=== PATIENT | female | born 1930 | race Caucasian/White ===

== ENCOUNTER 2017-10-17 11:19 | Day surgery (SDC) | payer OTHER ==
[2017-10-12 12:12] LABS: Absolute Monocytes 0.8 K/uL (0.1-1.3); Absolute Neutrophil 5.6 K/uL (1.8-8.0); Basophils % 0.7 % (0-1.3); Eosinophils % 1.9 % (0-4.4); Hematocrit 36.6 % (36.0-45.0); Lymphocytes % 31.3 % (15.3-44.8); MCH 31.2 pg (27.0-35.0); MCV 91.1 fL (80-100); MPV 9.2 fL (7.6-11.3); Monocytes % 8.2 % (3.3-12.3); RBC Red Blood Cell Count 4.02 M/uL (3.86-4.86)
[2017-10-12 12:30] LABS: Potassium 3.7 mmol/L (3.5-5.1)
--- NOTE | 2017-10-12 17:52 | EKG ---
Test Date: 2017-10-12 Test Time: 11:50:16 Aws Developer: ROSIE MEASUREMENT RESULTS: Intervals: Rate: 63 DE: 144 QRSD: 90 QT: 454 QTc: 464 [place]: P: 73 DE: 144 QRS: 34 T: 65 INTERPRETIVE STATEMENTS: Sinus rhythm with frequent premature ventricular complexes Otherwise normal ECG Compared to ECG 01/15/2014 06:37:14 Ventricular premature complex(es) now present Sinus bradycardia no longer present Electronically Signed On 10-12-17 17:50:40 CDT by Willem Dempsey
[2017-10-17] MEDS ORDERED: NA CHLORIDE 0.9% 500 ML ONE (12:08)
[2017-10-17] MEDS ORDERED: DUOVISC 1 KIT OPTH ONE (12:12)
[2017-10-17] MEDS ORDERED: BALANCED SALT IRRIG PLAIN 500 ML BTL IRR ONE (12:12)
[2017-10-17] MEDS ORDERED: NS 0.9% VIAL 10 ML ONE (12:12)
[2017-10-17] MEDS ORDERED: MOXIFLOXACIN HCL 10 DROPS/ML **OR USE OPTH ONE (12:13)
[2017-10-17] MEDS: CYCLOPENTOLATE 1% OPTH 2 ML ONE ×2 (12:25→12:30)
[2017-10-17] MEDS: PHENYLEPHRINE 10% OPTH 5ML ONE ×2 (12:25→12:30)
[2017-10-17] MEDS ORDERED: CYCLOPENTOLATE 1% OPTH 2 ML OPTH ONE (12:35)
[2017-10-17] MEDS ORDERED: PHENYLEPHRINE 10% OPTH 5ML OPTH ONE (12:35)
[2017-10-17] MEDS ORDERED: FENTANYL CITR 100 MCG/2 ML ONE (13:23)
[2017-10-17] MEDS ORDERED: GLYCOPYRROLATE 0.2 MG/ML SYR ONE (13:23)
[2017-10-17] MEDS ORDERED: PROPOFOL 200 MG/20 ML VIAL IV ONE (13:23)
[2017-10-17] MEDS ORDERED: EPHEDRINE SULF 50 MG/10 ML SYR ONE (13:24)
[2017-10-17] MEDS ORDERED: LIDOCAINE 1% MPF 2 ML AMPULE ONE (13:26)
[2017-10-17] MEDS ORDERED: Phenylephrine HCl 10 MG/ML 1 ML VIAL ONE (14:11)
[2017-10-17] MEDS ORDERED: EPINEPHRINE/PF 1 MG/ML AMP ONE (14:12)
[2017-10-17] MEDS ORDERED: ONDANSETRON HCL 40 MG/20 ML VIAL ONE (14:21)
--- NOTE | 2017-10-17 14:44 | P.BOP ---
Preoperative diagnosis: Nuclear sclerotic cataract OS Postoperative diagnosis: Same Primary procedure: Phacoemulsification with IOL OS Estimated blood loss: None Anesthesia: General Complications: None Implants: ZCB00 +21.0 Transferred to: Recovery Room Condition: Good
[2017-10-17] MEDS ORDERED: LABETALOL 20 MG/4ML SYRINGE IV ONE (14:53)
[2017-10-17 15:09] VITALS: O2SAT 95
[2017-10-17 15:19] VITALS: BP 110/54
[2017-10-17 15:38] VITALS: TEMP 97.9
--- NOTE | 2017-10-18 01:17 | OP ---
Date of Procedure: 10/17/2017 Surgeon: Darline Garner MD Anesthesiologist: Abigail Gaming CRNA and Milo Hein MD Preoperative Diagnosis: Nuclear sclerotic cataract OS (left eye). Operation Performed: Phacoemulsification with intraocular lens implant, left eye. Anesthesia: General anesthesia. Complications: None. Description Of Procedure: In the operating room the patient was prepped and draped in the usual sterile fashion for ophthalmic surgery. A lid speculum was placed in the left eye. Two paracentesis sites were made superiorly and inferiorly in the limbal cornea. Viscoat was placed in the anterior chamber and a crescent blade was used to make a corneal groove and tunnel, and a keratome was used to enter the anterior chamber. Provisc was placed in the anterior chamber and a 360 degree capsulotomy was performed with a cystitome. The lens was hydrodissected with BSS and rotated freely. The lens was removed with a stop and chop technique. phaco CDE was used to remove the lens. Residual cortex was removed with the irrigation and aspiration. Provisc was placed in the capsular bag. A ZCB00 +21.0 diopter lens was placed in the capsular bag without complications. Irrigation and aspiration was used to remove residual viscoelastic. The paracentesis sites were hydrated with BSS. The wound and paracentesis sites were inspected and found to be watertight. Vigamox 0.07 cc was placed intracamerally at the end of the procedure. The eye was irrigated with balanced salt solution. The eye was patched with a soft cotton patch and Franco metal shield. The patient was returned to day surgery in good condition. Comments: The patient was performed under general anesthesia due to dementia. One 10- nylon suture was placed in the wound at the end of the procedure in case the patient rubs the eye. Discharge Instructions: Ms. Keane is discharged to home in good condition and is to follow up with Dr. Garner in the morning. OSITO/DOMINIC Voice ID: [id number] Report ID: [id number] SYLVAIN
== END 2017-10-17 16:03 | disposition home or self-care (01) ==
LOC: OR 11:19
PROVIDERS: ATTEND Ophthalmology Retina Specialist
PROC: 08RK3JZ Replacement of Left Lens with Synthetic Substitute, Percutaneous Approach (ICD-10-PCS; principal; 2017-10-17 12:00)
DX: H25.12 Age-related nuclear cataract, left eye (principal); F03.90 Unspecified dementia, unspecified severity, without behavioral disturbance, psychotic disturbance, mood disturbance, and anxiety; I10 Essential (primary) hypertension; E78.00 Pure hypercholesterolemia, unspecified; E07.9 Disorder of thyroid, unspecified; M81.0 Age-related osteoporosis without current pathological fracture; Z88.0 Allergy status to penicillin; Z95.5 Presence of coronary angioplasty implant and graft
CPT/HCPCS: 36415; 66984; 80048; 85025; 93005; J0171; J2001; J2405; J3010; J2370